=== PATIENT | male | born 1985 | race African-American/Black ===

== ENCOUNTER 2021-06-17 17:53 | Emergency (ER) | payer MEDICARE, MEDICAID ==
[~2021-06-17] VITALS: Ht 175.3 cm; Wt 69.4 kg
[2021-06-17] MEDS ORDERED: DESYREL300 MG PO (18:02)
[2021-06-17] MEDS ORDERED: BENZTROPINE MES1 MG PO (18:02)
[2021-06-17] MEDS ORDERED: DEPAKOTE250 MG PO (18:02)
[2021-06-17 19:54] VITALS: BP 116/81
== END 2021-06-17 19:56 | disposition home or self-care (01) ==
LOC: M.ERS 17:53 → EDBD 17:53 → M.ERS 19:56
DX: R06.02 Shortness of breath (principal); Z20.822 Contact with and (suspected) exposure to COVID-19; J45.909 Unspecified asthma, uncomplicated; F20.9 Schizophrenia, unspecified; Z79.899 Other long term (current) drug therapy